=== PATIENT | male | born 2000 | race African-American/Black ===

== ENCOUNTER 2019-07-19 18:00 | Emergency (ER) | payer MEDICAID ==
[~2019-07-19] VITALS: Ht 175.3 cm; Wt 101.0 kg
[2019-07-19] MEDS ORDERED: LIDOCAINE HCL 1% 20ML VIAL (Pyxis) INJ INFIL ONE (19:15)
[2019-07-19] MEDS ORDERED: AZITHROMYCIN 500 MG TABLET PO ONE (19:15)
[2019-07-19] MEDS ORDERED: CEFTRIAXONE SODIUM 250 MG/VIAL IM ONE (19:15)
[2019-07-19 19:30] LABS: CLARITY URINE CLEAR (CLEAR); COLOR URINE DARK YELLOW (YELLOW); KETONES URINE TRACE (NEGATIVE); LEUKOCYTE ESTERASE URINE TRACE (NEGATIVE); NITRITE URINE NEGATIVE (NEGATIVE); OCCULT BLOOD URINE NEGATIVE (NEGATIVE); PROTEIN URINE 1+ (NEGATIVE); SPECIFIC GRAVITY URINE 1.037 (1.005-1.030)
[2019-07-19 20:41] VITALS: BP 125/72
[2019-07-22 04:08] LABS: CHLAMYDIA TRACHOMATIS NAA Negative (Negative); NEISSERIA GONORRHOEAE NAA Negative (Negative)
== END 2019-07-19 20:46 | disposition home or self-care (01) ==
LOC: ER 18:00
DX: Z11.3 Encounter for screening for infections with a predominantly sexual mode of transmission (principal)
CPT/HCPCS: 81003; 87491; 87591; 96372; 99283; J0696; J3490; Z7610